=== PATIENT | male | born 1965 | race Caucasian/White ===

== ENCOUNTER 2019-03-02 06:05 | Inpatient (IN) ==
--- NOTE | 2019-02-16 11:34 | Anesthesiology Consultation ---
Date of Service February 16, 2019 Assessment & Plan (1) Encounter for pre-operative examination: - No previous anesthesia/intubation records. Chart Review Chart Review: Acceptable Risk for Surgery (Pending PCP clearance.) and Patient seen in Pre Admission Testing Consults Requested medical (Marta Bustillos (02/20)) Teaching & Discussion Pre-Anesthesia Teaching/Discussion Notes: Instructed NPO after midnight before surgery, except medications with 15 cc of water. Medication instructions provided according to the PAT guidelines. History Surgery Operation Date: 03/02/19 14:50 Proposed Procedures p Left Total Knee Arthroplasty - John Heredia Height/Weight Height: 6 ft 1 in Weight: 139.1 kg Allergies Allergy/AdvReac Type Severity Reaction Status Date / Time No Known Allergies Allergy Verified 02/11/19 09:48 Medications Home Medications Medication Instructions Recorded Confirmed Last Taken No Known Home Medications 02/11/19 02/11/19 Unknown Past Medical History Medical History No known health problems Osteoarthritis Exercise / Class Metabolic Activity II 4-5 Yardwork/Stairs/Walk up hill (Alot of walking at work. Can slowly climb stairs (limited by pain). Denies CP or SOB (unless overly exerting himself, then some SOB). ) Past Surgical History Surgical History History of total right knee replacement 2016 Past Anesthesia History No Hx of Anesthesia Complications and No Family Hx of Anesthesia Complications History of PONV No Hx of PONV and No Hx of Motion Sickness (Unless reading in backseat) Social History Smoking Status: Former smoker Smoking cigarettes per day: 1ppd x 35 years Do You Dip or Chew Tobacco: Yes (1 can every other day x 5 years (Advised) ) Smoking End Date: 2013 Hx Alcohol Use: Yes Alcohol type: beer alcohol intake frequency: holidays/special occasions only Hx Substance Use: No Review of Systems Patient denies chest pain, shortness of breath, dyspnea on exertion, reflux, cough, wheezing, palpitations. +Joint Pain (Knee) Physical Exam Vital Signs BP: 150/93 (patient states it goes up when nervous) P: 83 R: 18 T: 98.1 SPO2: 97% on RA Constitutional + obese ENMT Mouth: + dentures (upper plate) and + edentulous Thyromental Distance: > or= 3.5 Finger Breadths (3.5) Mallampati Class: III Neck trachea midline, + short neck, + thick neck and + facial hair (Small, well maintained goatee - agreed to keep it well trimmed); neck extension not limited Respiratory normal respiratory effort Auscultation: lungs clear to auscultation bilaterally Cardiovascular Rate/Rhythm: regular rate and regular rhythm Heart Sounds: no murmur Vessels: no carotid bruit Occasional PVCs Neurologic moves all extremities Psychiatric Orientation: alert and oriented x 3 Testing Laboratory Results 02/16/19 11:18 02/16/19 11:18 02/16/19 02/16/19 11:18 11:18 PT 9.9 INR 1.0 APTT 25.6 Blood Type O Negative Antibody Screen NEGATIVE 02/16/19 11:18 Urine Culture - Preliminary Urine,Clean Catch Pin-point growth present, reincubating. Electrocardiogram Date: 02/16/19 Sinus rhythm @ 86bpm with PVCs Chest X-Ray Date: 02/16/19 Findings: + pulmonary vascular congestion FINDINGS: Cardiac silhouette top normal in size. Mild pulmonary vascular prominence. No focal opacity. No large effusion or pneumothorax. Degenerative changes of the thoracic spine. Upper abdomen normal. IMPRESSION: 1. Mild pulmonary vascular prominence could suggest mild volume overload. Otherwise no acute cardiopulmonary disease.
[2019-02-16 12:03] LABS: Basophils # (auto) 0.03 K/uL (0-0.2); Basophils % (auto) 0.3 %; Eosinophils # (auto) 0.13 K/uL (0-0.5); Eosinophils % (auto) 1.3 %; Hematocrit (blood only) 43.2 % (42-52); Hemoglobin 15.3 g/dL (14.0-18.0); Immature Granulocytes # (auto) 0.04 K/uL (0.00-0.02); Immature Granulocytes % (auto) 0.4 %; Lymphocytes # (auto) 1.96 K/uL (1.2-3.4); Lymphocytes % (auto) 20.2 %; Mean Corpuscular Hgb Conc 35.4 g/dL (32-36); Mean Corpuscular Volume 91.1 fL (80-100); Mean Platelet Volume 8.7 fL (7.4-10.4); Monocytes % (auto) 6.2 %; Neutrophils # (auto) 6.93 K/uL (1.4-6.5); Neutrophils % (auto) 71.6 %; Platelet Count 262 K/uL (130-400); RDW Coefficient of Variation 13.4 % (11.5-14.5); RDW Standard Deviation 44.7 fL (36.4-46.3); Red Blood Count 4.74 M/uL (4.7-6.1); White Blood Count 9.69 K/uL (4.8-10.8)
[2019-02-16 12:13] LABS: Partial Thromboplastin Ratio 0.9; Partial Thromboplastin Time 25.6 Seconds (21.0-31.0); Prothrombin Time 9.9 Seconds (9.0-12.0)
[2019-02-16 12:30] LABS: Albumin Level 3.7 gm/dl (3.4-5.0); BUN Creatinine Ratio 11.9 (10-20); Calcium 9.4 mg/dl (8.5-10.1); Creatinine Clr Calc Pharmacy 108.2 ml/min; Est GFR (African American) 84.3; Est GFR (Non-African American) 72.8; Potassium 4.7 mmol/L (3.5-5.1)
[2019-02-16 12:32] LABS: Albumin Globulin Ratio 0.9 (0.9-2); Bilirubin,Total 0.6 mg/dl (0.2-1); Globulin 4.1 gm/dl (2.5-4.0); Total Protein 7.8 gm/dl (6.4-8.2)
--- NOTE | 2019-02-16 12:58 | XRay Report ---
XR chest Pre-admission PA/Lat CLINICAL HISTORY: 53 years-old Male presenting with preoperative assessment. TECHNIQUE: PA and lateral views of the chest were obtained. COMPARISON: None. FINDINGS: Cardiac silhouette top normal in size. Mild pulmonary vascular prominence. No focal opacity. No large effusion or pneumothorax. Degenerative changes of the thoracic spine. Upper abdomen normal. IMPRESSION: 1. Mild pulmonary vascular prominence could suggest mild volume overload. Otherwise no acute cardiop ulmonary disease. Electronically signed by: Javi Castle M.D. 02/16/2019 12:57 PM
--- NOTE | 2019-02-27 10:47 | History & Physical Report ---
Date of Service February 27, 2019 Assessment & Plan (1) Degenerative joint disease of left knee: plan is to admit and undergo left TKA History of Present Illness Chief Complaint: left knee pain Primary Care Provider: Marta Bustillos left knee pain for years. Pt has tried nsaids, injections and pt with no relief. Allergies Allergy/AdvReac Type Severity Reaction Status Date / Time No Known Allergies Allergy Verified 02/11/19 09:48 Home Medications Home Medications Medication Instructions Recorded Confirmed Type No Known Home Medications 02/11/19 02/11/19 History Past Med/Surg History Medical History No known health problems Osteoarthritis Surgical History History of total right knee replacement 2016 Social History Preferred Language: [place] Communication Ability: Effective Beliefs That Will Affect Care: None Current Living Situation: Family Feels Safe at Home: Yes Safety Concerns: Feels Safe At This Time Smoking Status: Former smoker Cigarettes Per Day: 1ppd x 35 years Do You Dip or Chew Tobacco: Yes (1 can every other day x 5 years (Advised) ) Smoking End Date: 2013 Second Hand Exposure: Yes Hx Alcohol Use: Yes Alcohol type: beer Hx Substance Use: No Review of Systems All systems reviewed & are unremarkable except as noted in HPI & below Physical Exam Constitutional: WD/WN, vitals as above Neck: trachea midline, no thyromegaly Respiratory: normal respiratory effort, lungs clear to auscultation Cardiovascular: RRR, no murmur, no edema Gastrointestinal (Abdomen): normal bowel sounds, soft, nontender, no hepatosplenomegaly Musculoskeletal: Knee: + deformity, + limited ROM of knee and + knee ROM with crepitation
[~2019-03-02 06:05] MED LIST: ACETAMINOPHEN 500 MG TAB PO SCH; CEFAZOLIN 3000MG 65 ML IV SCH; CeleBREX 200 MG CAP PO SCH; FAMOTIDINE 20 MG TAB PO SCH; LR 500ML BOLUS, THEN 15ML/HR IV SCH; LR 60ML/HR IV SCH; METOCLOPRAMIDE HCL 10 MG TABLET PO SCH; ROPIVACAINE 0.5% HCL/PF 150 MG, BUPIVACAINE 0.5% MPF 30 ML, EPINEPHrine 30MG/30ML (OR U... INFIL SCH; TRANEXAMIC ACID 1,000 MG **IV Pre-op IV SCH; dexAMETHasone 4 MG TAB PO SCH
[2019-03-02] MEDS ORDERED: ROPIVACAINE 0.5% 5 MG/ML 30 ML VIAL ONE (06:28)
[2019-03-02] MEDS ORDERED: BUPIVACAINE 0.5 % 5 MG/1 ML PF 10ML VIAL ONE (06:29)
[2019-03-02] MEDS ORDERED: TRANEXAMIC ACID 1,000 MG **IV Intra-op IV SCH (06:30)
--- NOTE | 2019-03-02 06:44 | History & Physical Bridge Note ---
Date of Service March 02, 2019 History & Physical Bridge Note I have examined the patient, reviewed the History & Physical and in the interval since the performance of the History & Physical I have noted the following changes of clinical significance: no changes noted
[2019-03-02] MEDS ORDERED: MIDAZOLAM HCL 1 MG/ML 2ML VIAL ONE (06:54)
[2019-03-02] MEDS ORDERED: fentaNYL citrate 100 MCG/2 ML VIAL ONE (06:55)
[2019-03-02] MEDS ORDERED: ONDANSETRON INJ 2 MG/ML 2 ML VIAL ONE (06:55)
[2019-03-02] MEDS ORDERED: PROPOFOL IV EMULSION 10 MG/ML 20 ML VIAL IV ONE (06:55)
[2019-03-02] MEDS ORDERED: LIDOCAINE HCL 2% 2 ML VIAL/AMP(20MG/ML) INFIL ONE (06:55)
[2019-03-02] MEDS ORDERED: ORTHO JOINT ANESTHETIC ONE (07:08)
[2019-03-02] MEDS ORDERED: BACITRACIN INJ 50,000 UNIT VIAL ONE (07:08)
[2019-03-02] MEDS ORDERED: ePHEDrine sulfate 50 MG/ML AMP IV PRN (07:25)
[2019-03-02] MEDS ORDERED: ATROPINE SULFATE 0.1 MG/ML 10ML SYR IV PRN (07:25)
[2019-03-02] MEDS ORDERED: fentaNYL citrate 100 MCG/2 ML VIAL IV PRN (07:25)
[2019-03-02] MEDS ORDERED: ONDANSETRON INJ 2 MG/ML 2 ML VIAL IV PRN ×2 (07:25→11:18)
[2019-03-02] MEDS ORDERED: PHENYLEPHRINE HCL 10 MG/ML VIAL ONE (08:25)
--- NOTE | 2019-03-02 09:21 | Post Operative Brief Note ---
Immediate Post Op Note v1 Date of Surgery March 02, 2019 Pre & Post Diagnosis Operation Date: 03/02/19 08:20 Pre-Op Diagnosis: Left Knee Degenerative Joint Disease Post-Op Diagnosis: Left Knee Degenerative Joint Disease Procedure Operation Date: 03/02/19 08:20 Actual Procedures p Left Total Knee Arthroplasty(Left) - John Heredia Surgeon John Heredia Supervisor [employer] Kendell Ortega PARonan Estimated Blood Loss 20 Findings Consistent with Post-Op Diagnosis
--- NOTE | 2019-03-02 09:23 | Operative Report ---
Post Operative Report Pre & Post Diagnosis Operation Date: 03/02/19 08:20 Pre-Op Diagnosis: Left Knee Degenerative Joint Disease Post-Op Diagnosis: Left Knee Degenerative Joint Disease Procedure Operation Date: 03/02/19 08:20 Actual Procedures p Left Total Knee Arthroplasty(Left) - John Heredia Surgeon John Heredia Manager Metal Kendell Ortega PA-C Estimated Blood Loss 20 Findings Consistent with Post-Op Diagnosis Specimens None Complications none Disposition Disposition: Recovery Room Description of Procedure IMPLANTS USED: [employer] journey 2 knee size 7 cemented femoral component, size 6 tibial component, a size 9 PS insert and the patella was not resurfaced INDICATIONS: Mr. Chow is a pleasant (male who has unfortunately failed all forms of conservative measures. Therefore, they have decided to undergo elective surgical intervention. All risks and benefits of the surgery were discussed with the patient and the family in entirety. PROCEDURE: The patient was brought to the operating room and properly identified by myself, anesthesia, and staff. Patient was given a spinal anesthesia and placed on the operating table in the supine position. Tourniquets were applied to the left upper thigh. The leg was then prepped and draped in usual sterile fashion. We made a standard midline approach over the patella and dissected down through the subcutaneous tissue to identify the capsule and performed a medial capsulotomy with the patella everted and the knee flexed.The patient matched implant was then put onto the femur. The femur measured to be a size 7. This was then put into place. We made the appropriate cuts and then placed a retractor behind the proximal tibia to retract anteriorly. We then placed the patient matched knee implant on the tibia. It measured to be a size 6. A size 6 guide was then put in place. We used the tibial punch then put the trial components into place. We had very good range of motion, excellent stability, and excellent patella tracking. We removed the trial components and irrigated the wound. We impacted the components in place using antibiotic cement. All excess cement was removed. We then irrigated the wound once more. We closed the capsule with 0 PDS suture, deep dermis and 2-0 Vicryl, and finally the skin with iris. A sterile dressing was applied. The patient was taken to the recovery room in stable condition. Because of the patient's BMI of 39.58 the case was little more difficult it took about an extra 50% longer than it normally takes me to form the procedure and had needed an extra person to help with retraction and holding of the leg. Due to the complex nature of the procedure, the entire surgery was performed with the operational assistance of Kendell Ortega PA-C. The bindery library technical assistant was under direct supervision, was involved in the actual performance of all aspects of the surgical procedure including hemostasis, tissue retraction and incision, instrument management, patient positioning, and wound closure. I attest to the content of the Intraoperative Record and any orders documented therein. Any exceptions are noted below.
--- NOTE | 2019-03-02 10:33 | Anesthesiology Progress Note ---
Date of Service March 02, 2019 Anesthesia Post Procedure Vital Signs Vital Signs: Temp Pulse Resp BP Pulse Ox 03/02/19 10:25 97.2 F L 78 21 105/63 95 03/02/19 10:15 83 23 95/61 L 97 03/02/19 10:05 83 19 93/62 L 97 03/02/19 09:55 96.8 F L 92 H 21 89/61 L 94 03/02/19 06:53 98.4 F 89 18 145/85 H 97 Transfer of Care Handoff Completed per policy Notes Mental Status: alert / awake / arousable and participated in evaluation Patient Amnestic to Procedure: Yes Nausea / Vomiting: adequately controlled Pain: adequately controlled Airway Patency, RR, SpO2: stable & adequate BP & HR: stable & adequate Hydration State: stable & adequate Neuraxial Anesthesia: was administered and sensory block is resolving Anesthetic Complications: no major complications apparent and Pt Satisfied with anesthetic care
[2019-03-02] MEDS ORDERED: BISACODYL 10 MG SUPP PR PRN (11:18)
[2019-03-02] MEDS ORDERED: NALOXONE HCL 0.4 MG/1 ML VIAL/CARP IV PRN (11:18)
[2019-03-02] MEDS ORDERED: MAGNESIUM HYDROXIDE SUSP 30 ML UDC PO PRN (11:18)
[2019-03-02] MEDS ORDERED: METOCLOPRAMIDE HCL INJ 5 MG/ML 2 ML VIAL IV PRN (11:18)
[2019-03-02] MEDS ORDERED: ALUMINUM/MAGNESIUM SUSP 30 ML UDC PO PRN (11:18)
[2019-03-02] MEDS: LISINOPRIL 10 MG TAB PO SCH (12:22)
[2019-03-02] MEDS: SODIUM CHLORIDE 0.9% 1000ML 1,000 ML IV SCH ×2 (12:23→20:02)
[2019-03-02] MEDS ORDERED: TRANEXAMIC ACID 1,000 MG in 0.9 % SODIUM CHLORIDE 100 ML IV SCH (15:17)
[2019-03-02] MEDS: CEFAZOLIN 2000MG 2,000 MG/15 ML SYR IV SCH ×2 (15:22→23:46)
[2019-03-02] MEDS: DOCUSATE SODIUM 100 MG CAP PO SCH (20:00)
[2019-03-02] MEDS: ASPIRIN 81 MG ECTAB PO SCH (20:00)
[2019-03-02] MEDS ORDERED: SENNA 8.6 MG TAB PO SCH (21:00)
[2019-03-03 05:46] LABS: Hematocrit (blood only) 36.2 % (42-52); Hemoglobin 12.3 g/dL (14.0-18.0); Mean Corpuscular Volume 92.3 fL (80-100); Mean Platelet Volume 8.9 fL (7.4-10.4); Platelet Count 225 K/uL (130-400); RDW Coefficient of Variation 13.9 % (11.5-14.5); RDW Standard Deviation 47.1 fL (36.4-46.3); Red Blood Count 3.92 M/uL (4.7-6.1)
[2019-03-03 05:55] LABS: BUN Creatinine Ratio 14.7 (10-20); Calcium 8.2 mg/dl (8.5-10.1); Creatinine Clr Calc Pharmacy 110.7 ml/min; Est GFR (African American) 88.1; Potassium 4.4 mmol/L (3.5-5.1)
--- NOTE | 2019-03-03 07:32 | Anesthesiology Progress Note ---
Date of Service March 03, 2019 Anesthesia Post Procedure Vital Signs Vital Signs: Temp Pulse Resp BP Pulse Ox 03/03/19 07:06 36.4 C L 71 18 129/85 98 03/03/19 03:51 36.5 C 63 20 99/61 L 97 03/02/19 23:43 36.6 C 82 20 100/64 98 03/02/19 19:28 36.5 C 84 18 111/71 97 03/02/19 15:14 36.5 C 85 17 114/63 97 03/02/19 14:07 36.7 C 85 18 107/68 96 03/02/19 13:13 36.4 C L 84 18 122/75 95 03/02/19 12:10 75 18 109/69 95 03/02/19 11:40 36.5 C 80 20 115/65 95 03/02/19 11:10 36.6 C 78 18 112/71 95 03/02/19 10:45 78 16 110/72 95 03/02/19 10:35 80 19 102/66 93 03/02/19 10:25 36.2 C L 78 21 105/63 95 03/02/19 10:15 83 23 95/61 L 97 03/02/19 10:05 83 19 93/62 L 97 03/02/19 09:55 36 C L 92 H 21 89/61 L 94 Pain Intensity Left Knee: Pain Intensity: 0 Notes Mental Status: alert / awake / arousable and participated in evaluation Patient Amnestic to Procedure: Yes Nausea / Vomiting: adequately controlled Pain: adequately controlled Airway Patency, RR, SpO2: stable & adequate BP & HR: stable & adequate Hydration State: stable & adequate Neuraxial Anesthesia: was administered and sensory block resolved Anesthetic Complications: no major complications apparent
[2019-03-03] MEDS ORDERED: dexAMETHasone 10 MG in SYRINGE 0 ML IV SCH (08:00)
[2019-03-03] MEDS ORDERED: ACETAMINOPHEN 500 MG TAB PO PRN (08:08)
[2019-03-03] MEDS: DOCUSATE SODIUM 100 MG CAP PO SCH (08:18)
[2019-03-03] MEDS: ASPIRIN 81 MG ECTAB PO SCH (08:18)
[2019-03-03] MEDS: LISINOPRIL 10 MG TAB PO SCH (08:18)
[2019-03-03] MEDS: OXYCODONE HCL IR 5 MG TAB (IMMEDIATE RELEASE) PO PRN ×2 (08:20→13:47)
--- NOTE | 2019-03-03 08:30 | Progress Note ---
DATE: 03/03/2019 SUBJECTIVE: The patient is postop day 1 status post left total knee arthroplasty. Currently, he is lying in bed, awake, alert. He states his pain control was adequate and he denies any shortness of breath, chest pain, lightheadedness. We discussed some precautions with his knee, but otherwise he is doing well this morning and is hoping to go home this afternoon. OBJECTIVE: Dressings are clean, dry and intact. Calves were soft, nontender. Neurovascularly intact. Toes were mobile. His hemoglobin is 12.3 this morning. ASSESSMENT: Postop day 1 status post left total knee arthroplasty. PLAN: Begin PT and OT protocols, weightbearing as tolerated. Continue DVT prophylaxis with aspirin b.i.d., SCDs, ALESSANDRA johnson. Pain management with oxycodone and Tylenol. DISCHARGE PLANNING: The patient is planning for home health services upon discharge. Dr. Vidal to see the patient later today for rounding. JARED
--- NOTE | 2019-03-04 16:21 | Discharge Summary ---
DISCHARGE DIAGNOSIS: Degenerative joint disease, left knee. CONSULTS: None. COMPLICATIONS: None. PROCEDURES: Left total knee arthroplasty performed by Dr. Heredia on 03/02/2019. BRIEF HISTORY: As dictated in history and physical. HOSPITAL SUMMARY: The patient was admitted on the above-noted date and had the above-noted surgery performed, which he tolerated well. On the first postoperative day, he was sitting in bed lying awake and alert. Pain was controlled and he denied any shortness of breath, chest pain or lightheadedness. He was doing well that morning and was hoping to go home that afternoon. Dressings clean, dry and intact. Calves were soft, nontender. Neurovascularly intact. Toes were mobile. Hemoglobin was 12.3. He was started on physical therapy and occupational therapy protocols. Continued on DVT prophylaxis and pain management. Plans for home health services upon discharge. He progressed well with his physical therapy and was remaining stable and it was felt he could be discharged to home on 03/03/2019. For further review, please see chart. LABORATORY AND X-RAY DATA: As per chart. DISCHARGE INSTRUCTIONS: The patient was discharged home in satisfactory condition on 03/03/2019. DIET: Regular. ACTIVITY: Weightbearing as tolerated, left lower extremity. Follow TK instruction sheets and special care instructions as noted. Follow up with Dr. Heredia in 2 weeks. The patient to call for appointment if one has not made for you. DISCHARGE MEDICATIONS: Acetaminophen 1000 mg p.o. q. 8 hours, aspirin 81 mg p.o. b.i.d., cefadroxil 500 mg p.o. b.i.d., oxycodone 5 mg p.o. q. 4-6 hours p.r.n., sennosides 17.2 mg p.o. at bedtime. Resume home meds as listed including lisinopril 30 mg p.o. daily and Bactrim-DS p.o. b.i.d. as needed.
== END 2019-03-03 14:54 | disposition home health service (06) | DRG 470 ==
LOC: ASU 06:05 → 3E 11:18